=== PATIENT | male | born 1980 | race African-American/Black ===

== ENCOUNTER 2019-05-10 23:29 | Inpatient (IN) | payer OTHER, MEDICAID ==
[~2019-05-10] VITALS: Ht 193 cm; Wt 171.9 kg
[2019-05-11] MEDS ORDERED: SODIUM CHLORIDE 0.9% 1,000 ML IV ONE (00:46)
[2019-05-11 01:21] LABS: CLARITY URINE CLEAR (CLEAR); COLOR URINE YELLOW (YELLOW); KETONES URINE 2+ (NEGATIVE); LEUKOCYTE ESTERASE URINE NEGATIVE (NEGATIVE); NITRITE URINE NEGATIVE (NEGATIVE); OCCULT BLOOD URINE NEGATIVE (NEGATIVE); PROTEIN URINE NEGATIVE (NEGATIVE); SPECIFIC GRAVITY URINE 1.034 (1.005-1.030); UROBILINOGEN URINE 0.2 E.U./dL (0.2-1.0)
[2019-05-11 01:25] LABS: CHLORIDE 92 mEq/L (98-107)
[2019-05-11 01:34] LABS: PHOSPHORUS 3.2 mg/dL (2.5-4.9)
[2019-05-11 01:42] LABS: BETA HYDROXYBUTYRATE 2.1 mMol/L (0.0-0.3)
[2019-05-11] MEDS ORDERED: INSULIN REGULAR (HUMULIN R) 300UNITS/3ML SUBCUT ONE (02:45)
[2019-05-11 08:00] VITALS: BP 153/83
[2019-05-11 09:00] VITALS: BP 153/83
[2019-05-11] MEDS ORDERED: DEXTROSE 50% WATER 50ML SYRINGE IV PRN (09:30)
[2019-05-11] MEDS ORDERED: CLONIDINE 0.1MG TABLET PO PRN (09:30)
[2019-05-11] MEDS: SODIUM CHLORIDE 0.9% 1,000 ML IV SCH (10:48)
[2019-05-11] MEDS: LISINOPRIL 20MG TABLET PO SCH (10:51)
[2019-05-11 12:00] VITALS: BP 109/68
[2019-05-11] MEDS ORDERED: INSULIN GLARGINE UD 100 UNITS/ML SYR SUBCUT SCH ×2 (12:00→22:00)
[2019-05-11] MEDS: INSULIN LISPRO 100 UNITS/ML SUBCUT SCH ×5 (12:57→22:22)
[2019-05-11] MEDS: BLOOD SUGAR DIAGNOSTIC STRIP TEST SCH ×3 (12:59→21:47)
[2019-05-11 13:02] LABS: BASOPHILS % 0.9 % (0.0-2.0); EOSINOPHILS % 2.8 % (0.0-5.0); HEMATOCRIT. 41.6 % (42.0-52.0); HEMOGLOBIN. 13.9 g/dL (14.0-18.0); LYMPHOCYTES % 26.8 % (20.0-50.0); MEAN CORPUSCULAR HEMOGLOBIN 28.3 pg (28.0-32.0); MEAN CORPUSCULAR VOLUME 84.7 fL (80.0-94.0); MEAN PLATELET VOLUME 10.4 fl (7.4-10.4); MONOCYTES % 10.1 % (2.0-8.0); NEUTROPHILS % 59.4 % (40.0-76.0); PLATELET 195 x1000/uL (130-400); RED BLOOD CELL COUNT 4.91 mill/uL (4.7-6.1); RED CELL DISTRIBUTION WIDTH 13.7 % (11.6-14.6)
[2019-05-11 13:31] LABS: CHLORIDE 98 mEq/L (98-107)
[2019-05-11 13:38] LABS: LDL CHOLESTEROL 89 mg/dL (5-100)
[2019-05-11 13:39] LABS: HDL CHOLESTEROL 35 mg/dL (40-59)
[2019-05-11 16:00] VITALS: BP 144/97
[2019-05-11 20:00] VITALS: BP 120/66
[2019-05-12] VITALS (7 sets, daily range): BP systolic 104–123; BP diastolic 55–74
[2019-05-12] MEDS: SODIUM CHLORIDE 0.9% 1,000 ML IV SCH ×2 (00:13→07:42)
[2019-05-12] MEDS: BLOOD SUGAR DIAGNOSTIC STRIP TEST SCH ×2 (07:42→12:08)
[2019-05-12] MEDS: INSULIN LISPRO 100 UNITS/ML SUBCUT SCH ×4 (08:06→12:27)
[2019-05-12] MEDS: LISINOPRIL 20MG TABLET PO SCH (08:57)
[2019-05-12] MEDS ORDERED: ENOXAPARIN 40MG/0.4ML SYR SUBCUT SCH (13:15)
[2019-05-12] MEDS ORDERED: INSULIN GLARGINE UD 100 UNITS/ML SYR SUBCUT SCH (22:00)
== END 2019-05-12 17:55 | disposition home or self-care (01) | DRG 420 ==
LOC: ER 23:29 → 6EST 05-11 03:53 → EDBEDREQ 05-11 03:57 → EDBEDREQTM 05-11 03:57 → ENRESERV 05-11 07:55
PROVIDERS: ADMIT Internal Medicine; ATTEND Internal Medicine
DX: E11.00 Type 2 diabetes mellitus with hyperosmolarity without nonketotic hyperglycemic-hyperosmolar coma (NKHHC) (principal); Z68.42 Body mass index [BMI] 45.0-49.9, adult; E11.65 Type 2 diabetes mellitus with hyperglycemia; E66.9 Obesity, unspecified; I10 Essential (primary) hypertension; Z83.3 Family history of diabetes mellitus
CPT/HCPCS: 36415; 80048; 80061; 81003; 82010; 82962; 83036; 83735; 84100; 84153; 85025; 96372; 99285; J1815; J7030; G0103

== ENCOUNTER 2023-07-26 14:39 | Inpatient (IN) | payer MEDICAID, OTHER ==
[~2023-07-26] VITALS: Ht 182.9 cm; Wt 160.6 kg
[2023-07-26 15:48] LABS: BASOPHILS % 0.2 % (0.0-2.0); HEMATOCRIT. 46.1 % (42.0-52.0); HEMOGLOBIN. 15.3 g/dL (14.0-18.0); LYMPHOCYTES % 16.9 % (20.0-50.0); MEAN CORPUSCULAR HEMOGLOBIN 28.3 pg (28.0-32.0); MEAN CORPUSCULAR HGB CONC 33.2 g/dL (31.0-37.0); MEAN CORPUSCULAR VOLUME 85.1 fL (80.0-94.0); MEAN PLATELET VOLUME 8.2 fl (7.4-10.4); MONOCYTES % 11.8 % (2.0-8.0); NEUTROPHILS % 71.1 % (40.0-76.0); PLATELET 287 x1000/uL (130-400); RED BLOOD CELL COUNT 5.42 mill/uL (4.7-6.1); RED CELL DISTRIBUTION WIDTH 14.4 % (11.6-14.6); WHITE BLOOD COUNT 11.4 x1000/uL (4.5-11.0)
[2023-07-26 15:56] LABS: INR 1.3; PROTHROMBIN TIME 14.4 sec (9.6-11.0)
[2023-07-26 16:01] LABS: ALANINE AMINOTRANSFERASE 43 IU/L (10-49); ALBUMIN 4.4 g/dL (3.2-4.8); ASPARTATE AMINOTRANSFERASE 35 IU/L (<34); BILIRUBIN TOTAL 1.4 mg/dL (0.1-1.0); CALCIUM 8.7 mg/dL (8.7-10.4); CARBON DIOXIDE 25 mEq/L (21-32); CHLORIDE 101 mEq/L (98-107); CREATININE 1.2 mg/dL (0.6-1.3); POTASSIUM 3.5 mEq/L (3.5-5.1); PROTEIN TOTAL 7.8 g/dL (6.0-8.3); SODIUM 135 mEq/L (136-145); TROPONIN I HIGH SENSITIVITY 50 ng/L (3.0-53); UREA NITROGEN BLOOD 9 mg/dL (9-23)
[2023-07-26] MEDS: SODIUM CHLORIDE 0.9% 1,000 ML IV ONE (16:04)
[2023-07-26 16:07] LABS: GLUCOSE 131 mg/dL (70-105)
[2023-07-26] MEDS: CEFTRIAXONE 1GM/50ML 50 ML IV ONE (16:10)
[2023-07-26] MEDS: MORPHINE SULFATE 4 MG/ML CPJ (NOT FOR IM USE) IV ONE (17:47)
[2023-07-26] MEDS: ENOXAPARIN 120MG/0.8ML SYR SUBCUT ONE (17:47)
[2023-07-26 18:25] LABS: TROPONIN I HIGH SENSITIVITY 61 ng/L (3.0-53)
[2023-07-26] MEDS ORDERED: HYDROMORPHONE HCL/PF 2MG/ML CPJ IV ONE (19:00)
[2023-07-26 20:00] VITALS: BP 154/98; PULSE 111; RESP 22; TEMP 97.7
[2023-07-26] MEDS ORDERED: CLONIDINE 0.1MG TABLET PO PRN (20:08)
[2023-07-26] MEDS: HYDROMORPHONE HCL/PF 2MG/ML CPJ IV PRN (20:30)
[2023-07-26] MEDS: ENOXAPARIN 150MG/ML SYR SUBCUT SCH (21:12)
[2023-07-26] MEDS: SODIUM CHLORIDE 0.9% 1,000 ML IV SCH (21:13)
[2023-07-26] MEDS ORDERED: IOHEXOL-350 100 ML BOTTLE ONE (23:47)
[2023-07-27] VITALS: BP 131/82; PULSE 106; RESP 22; TEMP 96
[2023-07-27 06:00] VITALS: BP 109/67; PULSE 104; RESP 22; TEMP 97.9
[2023-07-27 06:39] LABS: BASOPHILS % 0.2 % (0.0-2.0); HEMATOCRIT. 42.5 % (42.0-52.0); HEMOGLOBIN. 14.3 g/dL (14.0-18.0); LYMPHOCYTES % 19.5 % (20.0-50.0); MEAN CORPUSCULAR HEMOGLOBIN 28.2 pg (28.0-32.0); MEAN CORPUSCULAR HGB CONC 33.6 g/dL (31.0-37.0); MEAN CORPUSCULAR VOLUME 84.1 fL (80.0-94.0); MEAN PLATELET VOLUME 8.6 fl (7.4-10.4); MONOCYTES % 13.6 % (2.0-8.0); NEUTROPHILS % 66.7 % (40.0-76.0); PLATELET 239 x1000/uL (130-400); RED BLOOD CELL COUNT 5.05 mill/uL (4.7-6.1); RED CELL DISTRIBUTION WIDTH 14.5 % (11.6-14.6); WHITE BLOOD COUNT 10.5 x1000/uL (4.5-11.0)
[2023-07-27 07:14] LABS: CALCIUM 8.5 mg/dL (8.7-10.4); CARBON DIOXIDE 22 mEq/L (21-32); CHLORIDE 106 mEq/L (98-107); CREATININE 1.1 mg/dL (0.6-1.3); GLUCOSE 104 mg/dL (70-105); POTASSIUM 3.6 mEq/L (3.5-5.1); SODIUM 136 mEq/L (136-145); UREA NITROGEN BLOOD 10 mg/dL (9-23)
[2023-07-27 07:40] LABS: HEPATITIS A AB IGM NEGATIVE (Negative); HEPATITIS B CORE AB IGM NEGATIVE (Negative); HEPATITIS B SURFACE ANTIGEN REACTIVE PEND CONFIR (Negative); HEPATITIS C AB NON REACTIVE (Neg) (Negative)
[2023-07-27 07:50] LABS: HEPATITIS B SURFACE ANTIGEN REACTIVE PEND CONFIR (Negative); HEPATITIS C AB NON REACTIVE (Neg) (Negative)
[2023-07-27 08:09] VITALS: BP 125/75; PULSE 108; RESP 20; TEMP 102.6
[2023-07-27] MEDS: PANTOPRAZOLE SODIUM 40 MG/VIAL IV SCH (08:27)
[2023-07-27 10:40] LABS: CLARITY URINE CLEAR (CLEAR); COLOR URINE DARK YELLOW (YELLOW); GLUCOSE URINE NEGATIVE (NEGATIVE); KETONES URINE 1+ (NEGATIVE); LEUKOCYTE ESTERASE URINE TRACE (NEGATIVE); NITRITE URINE NEGATIVE (NEGATIVE); OCCULT BLOOD URINE TRACE (NEGATIVE); PH URINE 5.5 (4.5-8.0); PROTEIN URINE 2+ (NEGATIVE); SPECIFIC GRAVITY URINE 1.047 (1.005-1.030)
[2023-07-27] MEDS: ACETAMINOPHEN 325MG TABLET PO PRN (11:10)
[2023-07-27 11:11] LABS: BACTERIA URINE 1+; RBC URINE 0-2 /hpf (0-2); SQUAMOUS EPITHELIAL CELL URINE NONE SEEN /lpf (RARE/1+); WBC URINE 0-2 /hpf (0-2); YEAST URINE NONE SEEN
[2023-07-27] MEDS ORDERED: ACETAMINOPHEN 325MG TABLET PO PRN (11:15)
[2023-07-27 12:00] VITALS: BP 144/83; PULSE 102; RESP 20; TEMP 99.9
[2023-07-27 16:00] VITALS: BP 123/75; PULSE 93; RESP 18; TEMP 98.7
[2023-07-27 20:00] VITALS: BP 134/68; PULSE 98; RESP 20; TEMP 98
[2023-07-27] MEDS: ENOXAPARIN 150MG/ML SYR SUBCUT SCH (21:41)
[2023-07-28] VITALS (9 sets, daily range): BP systolic 101–146; BP diastolic 56–91; PULSE 68–114; RESP 18–24; TEMP 96.6–98; O2SAT 92–95
[2023-07-28] MEDS: PANTOPRAZOLE 40MG DR TABLET PO SCH (06:13)
[2023-07-28 10:31] LABS: BG BASE EXCESS -2.3 mmol/L (-2.0-2.0); BG DEOXYHEMOGLOBIN 17.5 % (0.0-5.0); BG FRACTION INSPIRED OXYGEN 21; BG HCO3 ACT 20.3 mmol/L (22.0-26.0); BG METHEMOGLOBIN 0.1 % (0.0-1.5); BG OXYGEN SATURATION 82.5 % (92.0-98.5); BG OXYHEMOGLOBIN 82.4 % (94.0-97.0); BG PCO2 29.6 mmHg (35.0-45.0); BG PH 7.455 (7.350-7.450); BG PO2 43.2 mmHg (75.0-100.0); BG SAMPLE SITE RIGHT RADIAL; BG TOTAL HEMOGLOBIN 14.4 g/dL (12.0-18.0); BG VENT MODE ROOM AIR
[2023-07-28] MEDS: IPRATROPIUM/ALBUTEROL 0.5-3(2.5)MG/3ML NEB HHN PRN (10:40)
[2023-07-28] MEDS: FUROSEMIDE 40MG/4ML VIAL IVP NR (12:44)
[2023-07-28] MEDS ORDERED: CEFTRIAXONE 2GM/50ML 50 ML IV SCH (13:00)
[2023-07-28] MEDS: DEXTROSE 5% IV SCH (14:39)
[2023-07-28] MEDS: WATER IV SCH (14:39)
[2023-07-28] MEDS: AZITHROMYCIN 500MG/250ML 250 ML IV SCH (14:39)
[2023-07-28] MEDS: CEFTRIAXONE IV SCH (14:39)
[2023-07-28] MEDS: METHYLPREDNISOLONE SOD SUCC 40MG/ML (ACT-O-VIAL) IV SCH (14:39)
[2023-07-28] MEDS: IPRATROPIUM/ALBUTEROL 0.5-3(2.5)MG/3ML NEB HHN SCH (19:49)
[2023-07-29] VITALS (10 sets, daily range): BP systolic 107–134; BP diastolic 62–84; PULSE 72–97; RESP 18–22; TEMP 97.5–98.4; O2SAT 90–96
[2023-07-29] MEDS: BUDESONIDE 0.5MG/2ML NEB HHN SCH (00:04)
[2023-07-29] MEDS: FUROSEMIDE 40MG/4ML VIAL IVP SCH (01:33)
[2023-07-29 06:45] LABS: BASOPHILS % 0.1 % (0.0-2.0); HEMOGLOBIN. 14.1 g/dL (14.0-18.0); LYMPHOCYTES % 16.2 % (20.0-50.0); MEAN CORPUSCULAR HEMOGLOBIN 28.9 pg (28.0-32.0); MEAN CORPUSCULAR HGB CONC 34.5 g/dL (31.0-37.0); MEAN CORPUSCULAR VOLUME 83.6 fL (80.0-94.0); MEAN PLATELET VOLUME 8.7 fl (7.4-10.4); MONOCYTES % 3.7 % (2.0-8.0); PLATELET 230 x1000/uL (130-400); RED CELL DISTRIBUTION WIDTH 14.2 % (11.6-14.6); WHITE BLOOD COUNT 4.4 x1000/uL (4.5-11.0)
[2023-07-29 07:04] LABS: CALCIUM 8.8 mg/dL (8.7-10.4); CARBON DIOXIDE 24 mEq/L (21-32); CHLORIDE 103 mEq/L (98-107); GLUCOSE 165 mg/dL (70-105); POTASSIUM 3.9 mEq/L (3.5-5.1); SODIUM 136 mEq/L (136-145); UREA NITROGEN BLOOD 10 mg/dL (9-23)
[2023-07-29 10:44] LABS: BG BASE EXCESS 1.2 mmol/L (-2.0-2.0); BG CARBOXYHEMOGLOBIN 0.2 % (0.5-1.5); BG DEOXYHEMOGLOBIN 9.8 % (0.0-5.0); BG FRACTION INSPIRED OXYGEN 28; BG HCO3 ACT 25.3 mmol/L (22.0-26.0); BG METHEMOGLOBIN 0.2 % (0.0-1.5); BG OXYGEN SATURATION 90.2 % (92.0-98.5); BG OXYHEMOGLOBIN 89.8 % (94.0-97.0); BG PCO2 38.6 mmHg (35.0-45.0); BG PH 7.434 (7.350-7.450); BG PO2 57.6 mmHg (75.0-100.0); BG SAMPLE SITE RIGHT RADIAL; BG TOTAL HEMOGLOBIN 15.3 g/dL (12.0-18.0); BG VENT MODE NASAL CANNULA
[2023-07-29] MEDS ORDERED: NALOXONE HCL 0.4MG/ML VIAL IV PRN (20:45)
[2023-07-30] VITALS (8 sets, daily range): BP systolic 104–141; BP diastolic 57–86; PULSE 60–110; RESP 18–22; TEMP 97.5–98.4; O2SAT 93–95
[2023-07-30 07:57] LABS: HEMOGLOBIN. 13.5 g/dL (14.0-18.0); LYMPHOCYTES % 8.1 % (20.0-50.0); MEAN CORPUSCULAR HEMOGLOBIN 28.5 pg (28.0-32.0); MEAN CORPUSCULAR HGB CONC 33.7 g/dL (31.0-37.0); MEAN CORPUSCULAR VOLUME 84.6 fL (80.0-94.0); MEAN PLATELET VOLUME 8.7 fl (7.4-10.4); MONOCYTES % 5.1 % (2.0-8.0); NEUTROPHILS % 86.8 % (40.0-76.0); PLATELET 286 x1000/uL (130-400); RED BLOOD CELL COUNT 4.73 mill/uL (4.7-6.1); RED CELL DISTRIBUTION WIDTH 14.4 % (11.6-14.6); WHITE BLOOD COUNT 9.2 x1000/uL (4.5-11.0)
[2023-07-30 08:37] LABS: CALCIUM 8.5 mg/dL (8.7-10.4); CARBON DIOXIDE 27 mEq/L (21-32); CHLORIDE 103 mEq/L (98-107); GLUCOSE 162 mg/dL (70-105); POTASSIUM 3.7 mEq/L (3.5-5.1); SODIUM 137 mEq/L (136-145); UREA NITROGEN BLOOD 11 mg/dL (9-23)
[2023-07-30 12:40] LABS: BG BASE EXCESS 0.5 mmol/L (-2.0-2.0); BG CARBOXYHEMOGLOBIN 0.3 % (0.5-1.5); BG FRACTION INSPIRED OXYGEN 21; BG HCO3 ACT 24.1 mmol/L (22.0-26.0); BG METHEMOGLOBIN 0.1 % (0.0-1.5); BG OXYHEMOGLOBIN 91.6 % (94.0-97.0); BG PCO2 35.9 mmHg (35.0-45.0); BG PH 7.445 (7.350-7.450); BG PO2 59.9 mmHg (75.0-100.0); BG SAMPLE SITE LEFT RADIAL; BG VENT MODE ROOM AIR
[2023-07-31] VITALS (10 sets, daily range): BP systolic 105–124; BP diastolic 51–98; PULSE 52–89; RESP 16–20; TEMP 97.2–98; O2SAT 92
[2023-07-31] MEDS: FAMOTIDINE 20MG TABLET PO SCH (08:57)
[2023-07-31] MEDS ORDERED: MED4 MT (09:20)
[2023-07-31] MEDS ORDERED: APIX5TAB MT (09:20)
[2023-07-31] MEDS ORDERED: FURO-151 MT (09:20)
[2023-07-31] MEDS: AZITHROMYCIN 500 MG TABLET PO SCH (14:59)
[2023-07-31] MEDS: HYDROCODONE/ACETAMINOPHEN 5/325MG TABLET PO PRN (22:17)
[2023-08-01] VITALS (10 sets, daily range): BP systolic 102–158; BP diastolic 50–81; PULSE 45–88; RESP 15–21; TEMP 97.2–97.8; O2SAT 96–100
[2023-08-01] MEDS: ZOLPIDEM TARTRATE 5MG TABLET PO PRN (00:59)
[2023-08-01] MEDS ORDERED: CEFTRIAXONE 2GM/50ML 50 ML IV SCH (13:30)
[2023-08-02] VITALS: BP 115/66; PULSE 59; RESP 19; TEMP 97.9
[2023-08-02 04:00] VITALS: BP 100/51; PULSE 59; RESP 19; TEMP 97.9
[2023-08-02 08:00] VITALS: BP 113/62; PULSE 57; RESP 17; TEMP 97.8
[2023-08-02 08:21] VITALS: PULSE 66; RESP 20; O2SAT 95
== END 2023-08-02 10:50 | disposition home or self-care (01) | DRG 133 ==
LOC: ER 14:39 → EDBEDREQ 16:24 → 7EST 17:25 → EDBEDREQSVC 17:26 → EDBEDREQ 17:37
PROVIDERS: ADMIT Internal Medicine; ATTEND Internal Medicine
DX: J96.01 Acute respiratory failure with hypoxia (principal); I26.99 Other pulmonary embolism without acute cor pulmonale; I11.0 Hypertensive heart disease with heart failure; I50.9 Heart failure, unspecified; E11.9 Type 2 diabetes mellitus without complications; E66.01 Morbid (severe) obesity due to excess calories; Z68.42 Body mass index [BMI] 45.0-49.9, adult; Z59.02 Unsheltered homelessness
CPT/HCPCS: 36415; 36600; 71045; 71275; 80048; 80053; 81003; 82375; 82805; 83605; 83880; 84145; 84484; 85025; 85379; 86705; 86709; 87340; 93005; 93308; 93970; 94640; 97162; 97530; 99291; C9113; J0456; J0696; J1170; J1650; J1940; J2270; J2920; J7030; J7060; J7626; Q9967